=== PATIENT | male | born 1970 | race Caucasian/White ===

== ENCOUNTER 2018-08-20 20:21 | Observation (INO) ==
[2018-08-20] MEDS ORDERED: Ipratropium/Albuterol Neb 3 ML IH ONE (21:10)
[2018-08-20] MEDS ORDERED: Azithromycin 500 MG in D5% in Water 250 ML IVPB ONE (21:25)
[2018-08-20] MEDS ORDERED: cefTRIAXone 1,000 MG in Water for inj. (sterile) 20 ML 10 ML IVP ONE (21:25)
[2018-08-20 21:29] LABS: Basophils # 0.1 K/mcL (0.0-0.2); Basophils % 0.5 %; Eosinophils # 0.2 K/mcL (0.0-0.6); Eosinophils % 0.6 %; Hemoglobin 14.7 g/dL (12.9-16.9); Immature Granulocytes % 1.7 % (0-4); Lymphocytes # 2.3 K/mcL (0.6-4.6); Lymphocytes % 9.7 %; Mean Corpuscular HGB Conc 34.2 g/dL (31.6-35.5); Mean Corpuscular Hemoglobin 30.1 pg (28.0-33.3); Mean Corpuscular Volume 88.1 fL (83.0-100.0); Mean Platelet Volume 9.8 fL (9.4-12.4); Monocytes # 1.5 K/mcL (0.0-1.3); Monocytes % 6.5 %; Neutrophils # 18.8 K/mcL (1.6-8.9); Platelet Count 308 K/mcL (140-400); Red Blood Count 4.88 M/mcL (4.19-5.50); Red Cell Distribution Width 12.5 % (11.5-14.5)
--- NOTE | 2018-08-20 21:34 | Emergency Department Note ---
Disposition Clinical Impression: Bronchiolitis, Tachycardia, Tachypnea Disposition: Admitted As Inpatient Condition: Good Referrals: Karoline Olson CNP [Primary Care Provider] - Forms: ED Satisfaction Letter Time of Disposition: 03:03 [facility] - General Chief Complaint: ED Chest Pain Stated Complaint: Chest Pain/ DANIELLE Time Seen by Provider: 08/20/18 21:13 Nursing Notes Reviewed: Yes Vital Signs Reviewed: Yes - History of Present Illness 48yo male presents from home for evaluation of persistent dyspnea. Onset 12 days ago. He has chills and fatigue. Nausea. Vomiting after coughing. Productive cough with brown/bruno chunks and sputum. Decrease in appetite. Chest pain with cough. Chest heaviness when lying supine at night. Loose stools starting today. He was seen and evaluated at outside hospital 6 days ago, diagnosed with bronchitis, provided steroids and albuterol inhaler. His symptoms have slowly progressively worsened. Nothing noted to improve his symptoms. Habits: [id number] smoking history. Recently quit. On Chantix. ROS: Positive: As above Negative: Unusual back pain, abdominal pain, dysuria, constipation, hematochezia, melena, hematemesis, headache - Related Data Home Medications Medication Instructions Recorded Confirmed Albuterol Sulfate [Ventolin Hfa] 2 puff IH Q4H PRN 08/20/18 08/20/18 Oxycodone HCl/Acetaminophen 1 tab PO Q4-6H PRN 08/20/18 08/20/18 [Percocet 5-325 mg Tablet] Varenicline Tartrate [Chantix 1 tab PO AD 08/20/18 08/20/18 Starting Month BELGICA] Allergies Allergy/AdvReac Type Severity Reaction Status Date / Time No Known Allergies Allergy Verified 08/20/18 20:35 All systems ED: reviewed and negative except as stated. Review of Systems: As Per HPI Past Medical History - Past Medical History Medical history: Reports: hyperlipidemia, hypertension Surgical history: Reports: cholecystectomy, orthopedic, other Psychiatric history: Reports: no psych history - Social History Smoking Status: Former smoker Smokeless Tobacco Status: No Alcohol use: Reports: none Drug use: Reports: none Physical Exam Vital Signs Reviewed General: Patient is alert, oriented, and in mild distress-he is tachypneic, tachycardic, appears ill. Head: atraumatic, normocephalic Eye: normal appearance, PERRL, EOMI, no scleral icterus, no conjunctival injection ENT: mucous membranes moist, normal external ear exam Neck: normal inspection, trachea midline, full ROM Chest: normal inspection, symmetric chest rise Respiratory: Good respiratory effort. Bronchus a 3 phase. Bilateral breath sounds are poor air entry. Diffuse coarse wheeze. Cardiovascular: Regular rate and rhythm. No clicks, rubs, gallops, or murmors. Normal heart sounds. Abdomen: Bowel sounds present normoactive x-4 quadrants. Abdomen is soft, nondistended, and nontender. No guarding or rebound. No organomegaly noted. Musculoskeletal: Spontaneously moving all extremities. Skin: warm, dry, intact. Neuro: Alert and oriented x4. Sensation light touch intact. Psych: Patient's affect is appropriate for situation. Course Course Narrative: SIRS (+): Tachypnea, tachycardia. Clinical concern for acute exacerbation of COPD versus community-acquired pneumonia. Initial intake, patient was tachycardic and tachypnea. He was ill-appearing. Workup showed leukocytosis in part likely from his prednisone. Serum electrolytes unremarkable. Normal renal function. Normal troponin. EKG unremarkable for ischemia. Initial one view chest x-ray showed no acute pro cess. This did not correlate with patient's clinical picture. The CTA chest a prolonged his ED stay, it was subsequently ordered. No PE was seen. Diffuse freed lobar bronchiolitis was seen. This does fit clinically with patient's picture as he has been coughing up thick brown sputum. On repeat examination, his heart rate has improved though remains mildly tachycardic around 100. Respiratory rate remains tachypneic in the mid 20s. Oxygen saturation on room air is borderline hypoxic between 89-92%. His continues to feel ill. I discussed the above with the patient as well as my concerns. He is at bedside are agreeable to admission. I apologize for their prolonged stay in the remains pleasant. I discussed the above with the admitting hospitalist, Dr. Evans. He agrees to accept the patient for continued respiratory support. EKG dated 08/20/18 at 20:30 interpreted as sinus tachycardia with a rate of 104. Short SC 111. QRS 105, QTC 375. Mild right axis. Nonspecific ST-T changes. Compared to previous EKG dated 06/29/2012 showing no acute ischemic changes or comparison. Vital Signs Temperature 98.2 F 08/20/18 20:33 Pulse Rate 121 08/20/18 20:33 Respiratory Rate 18 08/20/18 20:33 Blood Pressure 130/90 08/20/18 20:33 O2 Sat by Pulse Oximetry 94 08/20/18 20:33 Temperature 98.2 F 08/20/18 20:33 Pulse Rate 98 08/21/18 02:11 Respiratory Rate 20 08/21/18 02:11 Blood Pressure 145/97 08/21/18 02:11 O2 Sat by Pulse Oximetry 92 08/21/18 02:11 Oxygen Delivery Oxygen Delivery Room Air Shortness of Breath/Dyspnea - Lab Data Result diagrams: 08/20/18 21:18 08/20/18 21:18 Lab Results 08/20/18 08/20/18 08/20/18 Range/Units 21:18 21:18 21:39 WBC 23.2 H (4.3-11.1) K/mcL RBC 4.88 (4.19-5.50) M/mcL Hgb 14.7 (12.9-16.9) g/dL Hct 43.0 (37.5-50.1) % MCV 88.1 (83.0-100.0) fL MCH 30.1 (28.0-33.3) pg MCHC 34.2 (31.6-35.5) g/dL RDW 12.5 (11.5-14.5) % Plt Count 308 (140-400) K/mcL MPV 9.8 (9.4-12.4) fL Immature Gran % 1.7 (0-4) % Seg Neutrophils % 81.0 % Lymphocytes % 9.7 % Monocytes % 6.5 % Eosinophils % 0.6 % Basophils % 0.5 % Neutrophils # 18.8 H (1.6-8.9) K/mcL Lymphocytes # 2.3 (0.6-4.6) K/mcL Monocytes # 1.5 H (0.0-1.3) K/mcL Eosinophils # 0.2 (0.0-0.6) K/mcL Basophils # 0.1 (0.0-0.2) K/mcL Sodium 140 (136-145) mEq/L Potassium 3.3 L (3.5-5.1) mEq/L Chloride 103 (98-107) mEq/L Carbon Dioxide 28 (23-29) mEq/L BUN 7 (6-20) mg/dL Creatinine 0.75 (0.70-1.30) mg/dL Est GFR ( Amer) > 60 (> 60) Est GFR (Non-Af Amer) > 60 (> 60) BUN/Creatinine Ratio 9 (6-26) Glucose 152 H (70-105) mg/dL Calculated Osmolality 291 (280-300) Lactic Acid 1.2 (0.5-2.2) mmol/L Calcium 9.2 (8.6-10.3) mg/dL Magnesium 2.0 (1.6-2.6) mg/dL Troponin I < 0.03 (< 0.04) ng/mL
[2018-08-20] MEDS: 0.9 % Sodium Chloride 1,000 ML IVC SCH ×2 (21:45→23:15)
[2018-08-20 21:49] LABS: BUN/Creatinine Ratio 9 (6-26); Blood Urea Nitrogen 7 mg/dL (6-20); Calcium 9.2 mg/dL (8.6-10.3); Carbon Dioxide 28 mEq/L (23-29); Chloride 103 mEq/L (98-107); Glucose 152 mg/dL (70-105); Osmolality,Calculated 291 (280-300); Potassium 3.3 mEq/L (3.5-5.1); Sodium 140 mEq/L (136-145); Troponin I < 0.03 ng/mL (< 0.04); eGFR For Non-African Americans > 60 (> 60)
[2018-08-20] MEDS ORDERED: Isovue-370 500 ML INFUS..BTL IV ONE (23:51)
--- NOTE | 2018-08-20 23:56 | Emergency Department Note ---
Disposition Clinical Impression: Bronchiolitis, Tachycardia, Tachypnea Disposition: Admitted As Inpatient Condition: Good General Adult HPI - General Chief complaint: ED Chest Pain Stated complaint: Chest Pain/ DANIELLE Time Seen by Provider: 08/20/18 21:13 Nursing Notes Reviewed: Yes Vital Signs Reviewed: Yes - History of Present Illness Pain Scale: 2 - Related Data Home Medications Medication Instructions Recorded Confirmed Albuterol Sulfate [Ventolin Hfa] 2 puff IH Q4H PRN 08/20/18 08/20/18 Oxycodone HCl/Acetaminophen 1 tab PO Q4-6H PRN 08/20/18 08/20/18 [Percocet 5-325 mg Tablet] Varenicline Tartrate [Chantix 1 tab PO AD 08/20/18 08/20/18 Starting Month ] Allergies Allergy/AdvReac Type Severity Reaction Status Date / Time No Known Allergies Allergy Verified 08/20/18 20:35 Past Medical History - Past Medical History Medical history: Reports: hyperlipidemia, hypertension Surgical history: Reports: cholecystectomy, orthopedic, other Psychiatric history: Reports: no psych history - Social History Smoking Status: Former smoker Smokeless Tobacco Status: No Alcohol use: Reports: none Drug use: Reports: none Course Vital Signs Temperature 98.2 F 08/20/18 20:33 Pulse Rate 121 08/20/18 20:33 Respiratory Rate 18 08/20/18 20:33 Blood Pressure 130/90 08/20/18 20:33 O2 Sat by Pulse Oximetry 94 08/20/18 20:33 Temperature 98.2 F 08/20/18 20:33 Pulse Rate 98 08/21/18 02:11 Respiratory Rate 20 08/21/18 02:11 Blood Pressure 145/97 08/21/18 02:11 O2 Sat by Pulse Oximetry 92 08/21/18 02:11 Oxygen Delivery Oxygen Delivery Room Air Medical Decision Making - Medical Records Medical records reviewed: Yes I reviewed the patient's medical records. - Lab Data Lab results reviewed: Yes I reviewed the patient's lab results. Result diagrams: 08/20/18 21:18 08/20/18 21:18 Lab Results 08/20/18 08/20/18 08/20/18 Range/Units 21:18 21:18 21:39 WBC 23.2 H (4.3-11.1) K/mcL RBC 4.88 (4.19-5.50) M/mcL Hgb 14.7 (12.9-16.9) g/dL Hct 43.0 (37.5-50.1) % MCV 88.1 (83.0-100.0) fL MCH 30.1 (28.0-33.3) pg MCHC 34.2 (31.6-35.5) g/dL RDW 12.5 (11.5-14.5) % Plt Count 308 (140-400) K/mcL MPV 9.8 (9.4-12.4) fL Immature Gran % 1.7 (0-4) % Seg Neutrophils % 81.0 % Lymphocytes % 9.7 % Monocytes % 6.5 % Eosinophils % 0.6 % Basophils % 0.5 % Neutrophils # 18.8 H (1.6-8.9) K/mcL Lymphocytes # 2.3 (0.6-4.6) K/mcL Monocytes # 1.5 H (0.0-1.3) K/mcL Eosinophils # 0.2 (0.0-0.6) K/mcL Basophils # 0.1 (0.0-0.2) K/mcL Sodium 140 (136-145) mEq/L Potassium 3.3 L (3.5-5.1) mEq/L Chloride 103 (98-107) mEq/L Carbon Dioxide 28 (23-29) mEq/L BUN 7 (6-20) mg/dL Creatinine 0.75 (0.70-1.30) mg/dL Est GFR ( Amer) > 60 (> 60) Est GFR (Non-Af Amer) > 60 (> 60) BUN/Creatinine Ratio 9 (6-26) Glucose 152 H (70-105) mg/dL Calculated Osmolality 291 (280-300) Lactic Acid 1.2 (0.5-2.2) mmol/L Calcium 9.2 (8.6-10.3) mg/dL Magnesium 2.0 (1.6-2.6) mg/dL Troponin I < 0.03 (< 0.04) ng/mL - Radiology Data Radiology results reviewed: Yes I reviewed the patient's radiology results. Chest X-Ray 08/20/18 20:36 IMPRESSION: No acute cardiopulmonary disease D/ / Geronimo Damico MD / Geronimo Damico MD Interpreting Provider: Geronimo Damico MD Chest CTA 08/21/18 00:00 IMPRESSION: Hill lobar bronchiolitis characterized by extensive tree-in-bud opacities. D/ / Demetris Carey MD / Demetris Carey MD Interpreting Provider: Demetris Carey MD - EKG Data EKG #1 EKG attestation: Yes I reviewed and interpreted this EKG. EKG results narrative: EKG shows a sinus tachycardia with ventricular rate of 104. No acute ST segment elevation or depression. No significant change from prior EKG dated 06/29/2012. Attestation Statement - Attestation Attestation: I, Minor Olivares MD, personally evaluated this patient and discussed their management with the resident physician. I reviewed the resident's note and agree with the documented findings, medical decision making, and plan of care. 48-year-old male presents to the emergency department with a complaint of a productive cough with thick greenish brown sputum, pleuritic bilateral chest pain, and shortness of breath. Symptoms started about 12 days ago. He was seen 6 days ago and another facility and was given a five-day course of prednisone and an inhaler. He has had no improvement in the symptoms. Subjective fever. Patient states he has a history of pneumonia in the past and this feels the same. On examination patient is a well-developed well-nourished male in mild distress. He is alert and oriented 3. There is no cyanosis or diaphoresis. Patient is tachypneic and appears uncomfortable. Breath sounds are decreased bilaterally with some expiratory wheezes, worse on the left. Heart tachycardic and regular. Abdomen soft and nontender with normal bowel sounds. No pedal edema. Chest x-ray negative. EKG shows a sinus tach with heart rate of 104. No acute ST segment elevation or depression. No significant change from prior EKG dated 06/29/2012. Labs reviewed. WBC 23.2. CTA of the chest was obtained and showed no evidence of pulmonary embolism however there was generalized tree and but appearance consistent with bronchiolitis, worse in the lower lung tinoco. The hospitalist, Dr. Evans, was consulted and accepted admission of the patient.
[2018-08-21] MEDS ORDERED: Ketorolac 15 MG/ML VIAL IVP ONE (01:53)
[2018-08-21] MEDS ORDERED: *HR* FentaNYL (PF) 100 MCG/2 ML VIAL IVP ONE (01:53)
[2018-08-21] MEDS ORDERED: Ringers Solution, Lactated 1,000 ML IVC SCH (03:45)
[2018-08-21] MEDS ORDERED: Potassium Chloride Elixir 20 MEQ/15 ML UDC PO ONE (04:08)
--- NOTE | 2018-08-21 04:20 | Internal Med History&Physical ---
Date of Encounter: 08/21/18 Time of Encounter: 04:18 Internal Medicine - H&P: HPI Chief complaint: SOB Admitted From: Home Plans for Post Hospital Care: Home History of present illness: Kwesi Fuentes is a 48-year-old man with an extensive smoking history recently started on varenicline who presents to the ER with the complaint of shortness of breath and increasing malaise. He says he has been feeling unwell for the past 12 days with chills, subjective fever, fatigue, nausea and productive cough. He was seen in an urgent care center where he was given a course of steroids and an inhaler but says this did not help him. He does report a history of pneumonia in the past and stated that this felt similar. On arrival he was tachycardic and tachypneic. CXR did not show any consolidations and CTA r/o PE and lobar consolidation, only showing signs of bronchiolitis. Given his poor clinical condition he was given empiric abx and fluids. He remained 90-92% saturation on room air which was concerning and is admitted for ongoing observation. He states that no one else at home is sick. He does report some myalgias, headache and generalized malaise. He also reports chest pain due to the incessant coughing. Review of old records show that he had PFTs done 18 months ago for SOB and concerning for reversible obstructive disease. Family hx remarkable for lung disease in father. Past Med Surg Social Fam HX - Past Medical History Medical history: hyperlipidemia, hypertension Additional medical history: former smoker Psychiatric history: no psych history - Past Surgical History Surgical History: cholecystectomy, orthopedic, other Additional surgical history: neck surgery. back surgery - Social History Smoking Status: Former smoker Smokeless Tobacco Status: No Alcohol use: none Drug use: none Internal Medicine - H&P: Meds Albuterol Sulfate [Ventolin Hfa] 2 puff IH Q4H PRN 08/20/18 [History] Oxycodone HCl/Acetaminophen [Percocet 5-325 mg Tablet] 1 tab PO Q4-6H PRN 08/20/18 [History] Varenicline Tartrate [Chantix Starting Month BELGICA] 1 tab PO AD 08/20/18 [History] Allergy/AdvReac Type Severity Reaction Status Date / Time No Known Allergies Allergy Verified 08/20/18 20:35 All Systems PM: A 10-system review of systems was performed and is negative for pertinent findings except as documented above in the HPI. - Constitutional Vitals: Temp Pulse Resp BP Pulse Ox 98.1 F 87 16 135/90 95 08/21/18 03:48 08/21/18 03:48 08/21/18 03:48 08/21/18 03:48 08/21/18 03:48 Exam: Vitals: Reviewed General: Well developed, in notable discomfort and malaise. Skin: Warm, supple. HEENT: Slightly dry mucous membranes. No conjunctivae pallor. Neck: No lymphadenopathy. No JVD. No carotid bruits. No palpable thyroid. Chest: Normal thoracic expansion. Slight wheezes in the lower lung tinoco. Heart: Normal S1 & S2; rhythmic. No rubs or murmurs. Abdomen: Non-distended, soft and non-tender to palpation. Extremities: No clubbing, cyanosis or edema. No calf tenderness. Normal distal pulses. Neurological: Awake, alert and oriented to person, place and time. No focal deficits. Psych: Affect appropriate. Internal Med - H&P Results - Labs CBC & Chem 7: 08/20/18 21:18 08/20/18 21:18 Labs: Short CBC 08/20/18 Range/Units 21:18 WBC 23.2 H (4.3-11.1) K/mcL Hgb 14.7 (12.9-16.9) g/dL Hct 43.0 (37.5-50.1) % Plt Count 308 (140-400) K/mcL Neutrophils # 18.8 H (1.6-8.9) K/mcL BMP 08/20/18 21:18 Sodium 140 Potassium 3.3 L Chloride 103 Carbon Dioxide 28 BUN 7 Creatinine 0.75 Glucose 152 H Calcium 9.2 Cardiac Enzymes 08/20/18 Range/Units 21:18 Troponin I < 0.03 (< 0.04) ng/mL - Impressions ITS Impressions Chest X-Ray 08/20/18 20:36 IMPRESSION: No acute cardiopulmonary disease D/ / Geronimo Damico MD / Geronimo Damico MD Interpreting Provider: Geronimo Damico MD Chest CTA 08/21/18 00:00 IMPRESSION: Hlil lobar bronchiolitis characterized by extensive tree-in-bud opacities. D/ / Demetris Carey MD / Demetris Carey MD Interpreting Provider: Demetris Carey MD - Assessment and plan (1) Acute respiratory failure with hypoxia Current Visit: Yes Status: Acute Assessment and plan: The patient is notably hypoxic for his age and lack of known comorbidities. It is possible that he is now developing COPD from his extensive smoking history. No signs of pneumonia were on on xray or CT scan. Concern exists for either a viral process given his constitutional symptoms, a superimposed bacterial infection in the setting of adult bronchitis or even pertussis given his report of post-tussive emesis. Will place on azithromycin daily. Supplemental oxygen therapy. Nebulizer therapy round the clock. Send serum Mycoplasma serology, B.pertussis PCR, influenza and respiratory virus panel swabs. Continue IVF. (2) Leukocytosis Current Visit: Yes Status: Acute Assessment and plan: Likely associated with recent course of prednisone. No focal consolidations to suggest focal pneumonia and typically a bronchitis/bronchiolitis would not cause this severe elevation. He has received empiric abx. Will continue to monitor trend. Qualifiers: Leukocytosis type: unspecified Qualified Code(s): D72.829 - Elevated white blood cell count, unspecified (3) Smoker Current Visit: Yes Status: Acute Assessment and plan: Will continue varenicline while here. (4) DVT prophylaxis Current Visit: Yes Status: Acute Assessment and plan: SubQ heparin. - Time Spent With Patient Total time spent is greater than 50% in coordination of care (as documented) at patient's floor/unit and/or counseling patient: Greater than 35 minutes
[2018-08-21] MEDS: Ipratropium/Albuterol Neb 3 ML IH SCH ×4 (04:30→22:21)
[2018-08-21] MEDS: *HR* Heparin 5,000 UNIT/ML VIAL SQ SCH ×2 (05:10→17:38)
[2018-08-21] MEDS: *HR* OxyCODONE/APAP 5/325 TABLET PO PRN ×4 (05:11→22:58)
[2018-08-21 06:18] LABS: Adenovirus Not Detected (Not Detect); Bordetella Pertussis Not Detected (Not Detect); Chlamydophila pneumoniae Not Detected (Not Detect); Coronavirus 229E Not Detected (Not Detect); Coronavirus HKU1 Not Detected (Not Detect); Coronavirus NL63 Not Detected (Not Detect); Coronavirus OC43 Not Detected (Not Detect); Human Metapneumovirus Not Detected (Not Detect); Human Rhinovirus/Enterovirus DETECTED (Not Detect); Influenza A Subtype 2009 H1 Not Detected (Not Detect); Influenza A Untypeable Not Detected (Not Detect); Influenza B Not Detected (Not Detect); Mycoplasma pneumoniae Not Detected (Not Detect); Parainfluenza Virus 1 Not Detected (Not Detect); Parainfluenza Virus 2 Not Detected (Not Detect); Parainfluenza Virus 3 Not Detected (Not Detect); Parainfluenza Virus 4 Not Detected (Not Detect); Respiratory Syncytial Virus Not Detected (Not Detect)
[2018-08-21] MEDS ORDERED: Azithromycin 250 MG TABLET PO SCH (09:00)
--- NOTE | 2018-08-21 09:05 | Event Note ---
Date of Encounter: 08/21/18 Time of Encounter: 09:00 Seen and assessed. agree with plan per night team Exam Resp. Decreased breath sounds, rhonchi in lung bases Plan Acute hypoxic resp failure 2/2 to COPD vs bronchiolitis vs viral pneumonia. Continue round the clock nebs, steroids and antibiotics Started on levaquin. CT chest showed multiple tree in bud opacities. Pulmonary consulted and appreciate recs
[2018-08-21] MEDS: Levofloxacin 750 MG/150 ML 750 MG/150 ML BAG IVPB SCH (09:33)
[2018-08-21 09:36] LABS: Basophils # 0.1 K/mcL (0.0-0.2); Basophils % 0.6 %; Eosinophils # 0.2 K/mcL (0.0-0.6); Eosinophils % 1.3 %; Hematocrit 40.3 % (37.5-50.1); Hemoglobin 13.5 g/dL (12.9-16.9); Immature Granulocytes % 2.3 % (0-4); Lymphocytes # 2.7 K/mcL (0.6-4.6); Lymphocytes % 15.1 %; Mean Corpuscular HGB Conc 33.5 g/dL (31.6-35.5); Mean Corpuscular Volume 89.6 fL (83.0-100.0); Mean Platelet Volume 9.8 fL (9.4-12.4); Monocytes # 1.3 K/mcL (0.0-1.3); Monocytes % 7.5 %; Platelet Count 289 K/mcL (140-400); Red Cell Distribution Width 12.6 % (11.5-14.5); Segmented Neutrophils % 73.2 %
[2018-08-21 10:03] LABS: BUN/Creatinine Ratio 7 (6-26); Blood Urea Nitrogen 5 mg/dL (6-20); Calcium 8.9 mg/dL (8.6-10.3); Carbon Dioxide 26 mEq/L (23-29); Chloride 110 mEq/L (98-107); Glucose 106 mg/dL (70-105); Osmolality,Calculated 296 (280-300); Potassium 4.3 mEq/L (3.5-5.1); Sodium 144 mEq/L (136-145); eGFR For Non-African Americans > 60 (> 60)
[2018-08-21] MEDS: Budesonide/Formoterol 160/4.5 1 PUFF INH IH SCH ×2 (10:56→22:21)
[2018-08-21] MEDS: methylPREDNISolone 125 MG/2 ML VIAL IVP SCH ×3 (14:25→23:53)
--- NOTE | 2018-08-21 15:50 | Pulmonology Consult Note ---
Date of Encounter: 08/21/18 Time of Encounter: 11:35 Assessment and Plan (1) Suspected chronic obstructive pulmonary disease based on initial evaluation Current Visit: Yes Status: Acute Based on the CT changes patient has evidence of extensive air-trapping significant for small airway disease or early emphysematous changes consistent with his chronic smoking history. To continue schedule bronchodilators will continue steroids will give steroid taper on discharge will send him home on Spiriva and albuterol nebulizer. (2) Bronchiolitis Current Visit: Yes Status: Acute Patient has extensive tree-in-bud opacities bilaterally in the CT scan this tree-in-bud opacities nothing but mucus impaction in the bronchials secondary to viral bronchiolitis as patient is positive for enterovirus at this can happen and atypical infection but is low probability here agree with the atypical coverage with antibiotics will be given to total 7 day course. Patient to follow-up with pulmonology in 8 weeks so we can repeat imaging and document resolution. (3) Nicotine abuse Current Visit: Yes Status: Acute Counseled about smoking cessation patient is motivated he is already on Chantix he said he is not going to smoke congratulated on his resolve. History of Present Illness Consult date: 08/21/18 Requesting physician: Benjamín Li Reason for consult: pneumonia, pulmonary fibrosis Chief complaint: shortness of breath cough and sputum production. History of present illness: 48-year-old male with past medical history significant for chronic smoking history comes with few days of not feeling well with increased cough and sputum production denies much fever or chills with increased shortness of breath patient uses short-acting bronchodilators as home medication was recently started on Chantix for quitting smoking found to have viral exacerbation of COPD with respiratory bronchiolitis with this typical of any viral or atypical infection pulmonary was consulted for bilateral tree-in-bud opacities which was found in CT chest. I interviewed the patient patient still has increased shortness of breath cough and some sputum production not feeling well denies any chest pain or chest tightness. Denies any GERD or neuro symptoms. Patient denies any musculoskeletal symptoms. Past Med Surg Social Fam HX - Past Medical History Medical history: hyperlipidemia, hypertension Additional medical history: former smoker Psychiatric history: no psych history - Past Surgical History Surgical History: cholecystectomy, orthopedic, other Additional surgical history: neck surgery. back surgery - Social History Smoking Status: Former smoker Smokeless Tobacco Status: No Alcohol use: none Drug use: none Medications and Allergies Albuterol Sulfate [Ventolin Hfa] 2 puff IH Q4H PRN 08/20/18 [History] Oxycodone HCl/Acetaminophen [Percocet 5-325 mg Tablet] 1 tab PO Q4-6H PRN 08/20/18 [History] Varenicline Tartrate [Chantix Starting Month BELGICA] 1 tab PO AD 08/20/18 [History] Allergy/AdvReac Type Severity Reaction Status Date / Time No Known Allergies Allergy Verified 08/20/18 20:35 All Systems: The remainder of the systems were reviewed and are negative Physical Examination Vital Signs: as entered per nursing Effort: mildly labored Auscultation: bilateral: wheezes Results - Laboratory Findings CBC and BMP: 08/21/18 09:25 08/21/18 09:25 Abnormal lab findings: Abnormal lab results WBC 17.7 K/mcL (4.3-11.1) H 08/21/18 09:25 Neutrophils # 13.0 K/mcL (1.6-8.9) H 08/21/18 09:25 Chloride 110 mEq/L (98-107) H 08/21/18 09:25 BUN 5 mg/dL (6-20) L 08/21/18 09:25 Glucose 106 mg/dL (70-105) H 08/21/18 09:25 Entero/Rhino (PCR) DETECTED (Not Detect) A 08/21/18 05:10 - Microbiology Findings Microbiology Findings: Microbiology, Last 48 Hours 08/20/18 21:39 Blood Culture - Preliminary Peripheral Venipuncture Culture is incubating and being continuously mo nitored for growth. Final report to follow. 08/20/18 21:39 Blood Culture - Preliminary Peripheral Venipuncture Culture is incubating and being continuously monitored for growth. Final report to follow. - Clinical Findings Intake & Output: Intake & Output 08/20/18 08/21/18 08/21/18 23:59 07:59 15:59 Intake Total 1250 / 1250 1000 / 1000 240 / 240 Balance 1250 / 1250 1000 / 1000 240 / 240 Weight 71.214 kg 72.8 kg Consult Discharge Plan - Plan Referrals: Karoline Olson, LABORATORY CHEMIST [Primary Care Provider] -
[2018-08-22] MEDS: Artificial Tears SOLN 15 ML BOTTLE BOTH EYES SCH ×2 (00:50→20:24)
[2018-08-22] MEDS: Ipratropium/Albuterol Neb 3 ML IH SCH ×4 (04:01→22:20)
[2018-08-22] MEDS: OXYCODONE Oral CONC 10 MG/0.5 ML ORAL.SYG SL PRN ×4 (04:08→22:18)
[2018-08-22] MEDS: *HR* Heparin 5,000 UNIT/ML VIAL SQ SCH ×2 (05:23→17:57)
--- NOTE | 2018-08-22 08:40 | Internal Med Progress Note ---
Hospitalist Progress Note - Encounter Date of Encounter: 08/22/18 Time of Encounter: 08:30 - Exam Vitals: Temp Pulse Resp BP Pulse Ox 98.8 F 89 18 137/95 93 08/22/18 07:27 08/22/18 07:27 08/22/18 07:27 08/22/18 07:27 08/22/18 07:27 Exam: Vitals: Reviewed General: Well developed, in notable discomfort and malaise. Skin: Warm, supple. HEENT: Slightly dry mucous membranes. No conjunctivae pallor. Neck: No lymphadenopathy. No JVD. No carotid bruits. No palpable thyroid. Chest: Normal thoracic expansion. Slight wheezes in the lower lung tinoco. Heart: Normal S1 & S2; rhythmic. No rubs or murmurs. Abdomen: Non-distended, soft and non-tender to palpation. Extremities: No clubbing, cyanosis or edema. No calf tenderness. Normal distal pulses. Neurological: Awake, alert and oriented to person, place and time. No focal deficits. Psych: Affect appropriate. - Assessment and Plan (1) Acute respiratory failure with hypoxia Current Visit: Yes Status: Acute Assessment and Plan: Secondary to acute COPD exacerbation and viral peneumonia with enterovirus. CT chest showed multiple tree in bud opacities suggestive of bronichiolitis from viral/atypical pneumonia Will start on nebs, steroids and antibiotics. Pulmonary following. Wean off oxygen as tolerated (2) COPD with acute exacerbation Current Visit: Yes Status: Acute Assessment and Plan: See #1. nebs, steroids and antibiotics (3) Bronchiolitis Current Visit: Yes Status: Acute Assessment and Plan: On antibiotics (4) Leukocytosis Current Visit: Yes Status: Acute Assessment and Plan: Likely associated with recent course of prednisone. Trending down (5) Smoker Current Visit: Yes Status: Acute Assessment and Plan: Will continue varenicline. (6) DVT prophylaxis Current Visit: Yes Status: Acute Assessment and Plan: SubQ heparin. - Time Spent with Patient Total time spent is greater than 50% in coordination of care (as documented) at patient's floor/unit and/or counseling patient: Internal Medicine: Result - Labs CBC & Chem 7: 08/21/18 09:25 08/21/18 09:25 Labs: Short CBC 08/21/18 Range/Units 09:25 WBC 17.7 H (4.3-11.1) K/mcL Hgb 13.5 (12.9-16.9) g/dL Hct 40.3 (37.5-50.1) % Plt Count 289 (140-400) K/mcL Neutrophils # 13.0 H (1.6-8.9) K/mcL [facility] 08/21/18 09:25 Sodium 144 Potassium 4.3 D Chloride 110 H Carbon Dioxide 26 BUN 5 L Creatinine 0.72 Glucose 106 H Calcium 8.9 Consult Discharge Plan - Plan Referrals: Karoline Olson, DENTAL SECRETARY [Primary Care Provider] - (4) Leukocytosis Qualifiers: Leukocytosis type: unspecified Qualified Code(s): D72.829 - Elevated white blood cell count, unspecified
[2018-08-22] MEDS: methylPREDNISolone 125 MG/2 ML VIAL IVP SCH ×2 (09:13→15:58)
[2018-08-22] MEDS: Levofloxacin 750 MG/150 ML 750 MG/150 ML BAG IVPB SCH (09:24)
[2018-08-22] MEDS: Budesonide/Formoterol 160/4.5 1 PUFF INH IH SCH ×2 (10:02→22:20)
--- NOTE | 2018-08-22 11:21 | Pulmonology Progress Note ---
Date of Encounter: 08/22/18 Time of Encounter: 11:00 Assessment and Plan (1) Suspected chronic obstructive pulmonary disease based on initial evaluation Current Visit: Yes Status: Acute Patient presenting with viral bronchiolitis with CT chest imaging patient has evidence of emphysematous changes looks like COPD exacerbation TO CONTINUE CURRENT REGIMEN OF BRONCHODILATORS TO SEND HIM HOME ON PROLONGED STEROID TAPER OVER 12 DAYS. Also do an exercise oximetry he might need exercise induced O2 supplementation for 4-6 weeks. (2) Bronchiolitis Current Visit: Yes Status: Acute Patient has extensive tree-in-bud opacities which shows bronchiolitis to get follow-up imaging in 8 weeks to document resolution. To follow-up with [place] [facility]ology in 8 weeks patient motivated to follow up with pulmonology and quit smoking. (3) Nicotine abuse Current Visit: Yes Status: Acute Motivated to quit smoking to continue with Chantix. Subjective Principal diagnosis: viral bronchiolitis Interval history: Patient is doing well feels a lot better than yesterday has some cough and sputum production as of breath denies any chest pain or chest tightness denies any fever or chills denies any other constitutional symptoms. Objective PUL Vital signs: Last Vital Signs Temp 98.8 F 08/22/18 07:27 Pulse 89 08/22/18 07:27 Resp 20 08/22/18 10:02 BP 137/95 08/22/18 07:27 Pulse Ox 92 08/22/18 10:02 Auscultation: bilateral: wheezes (miniml scattered wheezes ) Results - Laboratory Findings CBC and BMP: 08/21/18 09:25 08/21/18 09:25 Abnormal lab findings: Abnormal lab results WBC 17.7 K/mcL (4.3-11.1) H 08/21/18 09:25 Neutrophils # 13.0 K/mcL (1.6-8.9) H 08/21/18 09:25 Chloride 110 mEq/L (98-107) H 08/21/18 09:25 BUN 5 mg/dL (6-20) L 08/21/18 09:25 Glucose 106 mg/dL (70-105) H 08/21/18 09:25 Entero/Rhino (PCR) DETECTED (Not Detect) A 08/21/18 05:10 - Microbiology Findings Microbiology Findings: Microbiology, Last 48 Hours 08/20/18 21:39 Blood Culture - Preliminary Peripheral Venipuncture Culture is incubating and being continuously monitor ed for growth. Final report to follow. 08/20/18 21:39 Blood Culture - Preliminary Peripheral Venipuncture Culture is incubating and being continuously monitored for growth. Final report to follow. - Clinical Findings Intake & Output: Intake & Output 08/21/18 08/22/18 08/22/18 23:59 07:59 15:59 Intake Total 240 / 240 150 / 150 240 / 240 Output Total 450 / 450 1400 / 1400 Balance -210 / -210 -1250 / -1250 240 / 240 Consult Discharge Plan - Plan Referrals: Karoline Olson, SALES ACCOUNT EXECUTIVE [Primary Care Provider] -
[2018-08-22] MEDS: *HR* HYDROcodone/Acet 7.5/325 mg TABLET PO PRN (17:57)
[2018-08-23] MEDS: methylPREDNISolone 125 MG/2 ML VIAL IVP SCH ×2 (00:15→08:05)
[2018-08-23] MEDS: *HR* HYDROcodone/Acet 7.5/325 mg TABLET PO PRN ×2 (00:15→08:05)
[2018-08-23] MEDS: Ipratropium/Albuterol Neb 3 ML IH SCH ×2 (04:31→10:51)
[2018-08-23] MEDS: *HR* Heparin 5,000 UNIT/ML VIAL SQ SCH (05:10)
[2018-08-23] MEDS: OXYCODONE Oral CONC 10 MG/0.5 ML ORAL.SYG SL PRN (05:10)
[2018-08-23 05:20] LABS: Hematocrit 40.4 % (37.5-50.1); Hemoglobin 13.8 g/dL (12.9-16.9); Mean Corpuscular HGB Conc 34.2 g/dL (31.6-35.5); Mean Corpuscular Hemoglobin 30.3 pg (28.0-33.3); Mean Corpuscular Volume 88.6 fL (83.0-100.0); Mean Platelet Volume 9.9 fL (9.4-12.4); Platelet Count 343 K/mcL (140-400); Red Blood Count 4.56 M/mcL (4.19-5.50); Red Cell Distribution Width 12.8 % (11.5-14.5)
[2018-08-23 05:27] LABS: BUN/Creatinine Ratio 22 (6-26); Blood Urea Nitrogen 15 mg/dL (6-20); Calcium 9.4 mg/dL (8.6-10.3); Carbon Dioxide 25 mEq/L (23-29); Chloride 105 mEq/L (98-107); Glucose 135 mg/dL (70-105); Osmolality,Calculated 293 (280-300); Potassium 4.2 mEq/L (3.5-5.1); Sodium 140 mEq/L (136-145); eGFR For Non-African Americans > 60 (> 60)
[2018-08-23 05:55] LABS: Neutrophils # 26.8 K/mcL (1.6-8.9); Platelet Estimate Normal (Normal)
[2018-08-23] MEDS: Levofloxacin 750 MG/150 ML 750 MG/150 ML BAG IVPB SCH (08:08)
--- NOTE | 2018-08-23 08:23 | Discharge Summary ---
Orders not resulted at time of discharge: Pending orders 08/20/18 21:39 Culture,Blood [BC] Stat 08/21/18 11:50 Mycoplasma pneumoniae IgG IgM Routine 08/21/18 15:52 Legionella Antigen [RM] Routine Date of Encounter: 08/23/18 Time of Encounter: 08:15 - Discharge Diagnosis (1) Acute respiratory failure with hypoxia Priority: Primary Status: Acute Assessment and Plan: 48-year-old man with an extensive smoking history recently started on varenicline who presents to the ER with the complaint of shortness of breath and increasing malaise. He says he has been feeling unwell for the past 12 days with chills, subjective fever, fatigue, nausea and productive cough. He was seen in an urgent care center where he was given a course of steroids and an inhaler but says this did not help him. He does report a history of pneumonia in the past and stated that this felt similar. He was assessed with acute hypoxic respiratory failure secondary to acute COPD exacerbation and viral peneumonia with enterovirus. CT chest showed multiple tree in bud opacities suggestive of bronichiolitis from viral/atypical pneumonia he improved on nebs, steroids and antibiotics. He was seen by pulmonary who recommended discharge on a tapering course of steroids. He was discharged in a stable condition (2) COPD with acute exacerbation Priority: Primary Status: Acute (3) Bronchiolitis Priority: Primary Status: Acute (4) Leukocytosis Priority: Primary Status: Acute Qualifiers: Leukocytosis type: unspecified Qualified Code(s): D72.829 - Elevated white blood cell count, unspecified (5) Smoker Priority: Primary Status: Acute (6) DVT prophylaxis Priority: Primary Status: Acute Hospital course: Mr. Fuentes is a 48 year old male - Time Spent with Patient Total time spent providing and/or coordinating discharge services: - Discharge Medications Prescriptions: Budesonide/Formoterol 160/4.5 [Symbicort 160/4.5] 2 puff IH BIDR 30 Days #1 inh levoFLOXacin [Levaquin] 750 mg PO DAILY 5 Days #5 tablet predniSONE [PredniSONE] 10 mg PO DAILY 4 Days #4 tablet predniSONE [PredniSONE] 40 mg PO DAILY 4 Days #8 tablet predniSONE [PredniSONE] 20 mg PO DAILY 4 Days #4 tablet Home Medications: Albuterol Sulfate [Ventolin Hfa] 2 puff IH Q4H PRN 08/20/18 [History] Oxycodone HCl/Acetaminophen [Percocet 5-325 mg Tablet] 1 tab PO Q4-6H PRN 08/20/18 [History] Varenicline Tartrate [Chantix Starting Month ] 1 tab PO AD 08/20/18 [History] Budesonide/Formoterol 160/4.5 [Symbicort 160/4.5] 2 puff IH BIDR 30 Days #1 inh 08/23/18 [Rx] levoFLOXacin [Levaquin] 750 mg PO DAILY 5 Days #5 tablet 08/23/18 [Rx] predniSONE [PredniSONE] 10 mg PO DAILY 4 Days #4 tablet 08/23/18 [Rx] predniSONE [PredniSONE] 20 mg PO DAILY 4 Days #4 tablet 08/23/18 [Rx] predniSONE [PredniSONE] 40 mg PO DAILY 4 Days #8 tablet 08/23/18 [Rx] Allergies/Adverse Reactions: Allergy/AdvReac Type Severity Reaction Status Date / Time No Known Allergies Allergy Verified 08/20/18 20:35 Date of admission: 08/21/18 03:01 Primary care physician: Karoline Olson CNP Consults: 08/21/18 08:55 Consult to Pulmonology [CONS] Routine Consulting Provider: [facility] Reason for Consult: acute hypoxic respiratory failure with freed lobar tree in bud opacities on CT scan Call Completed: No - Constitutional Vitals: Temp Pulse Resp BP Pulse Ox 97.8 F 79 18 130/97 90 08/23/18 05:31 08/23/18 05:31 08/23/18 05:31 08/23/18 05:31 08/23/18 05:31 Exam: Vitals: Reviewed General: Well developed, in notable discomfort and malaise. Skin: Warm, supple. HEENT: Slightly dry mucous membranes. No conjunctivae pallor. Neck: No lymphadenopathy. No JVD. No carotid bruits. No palpable thyroid. Chest: Normal thoracic expansion. Slight wheezes in the lower lung [place]. Heart: Normal S1 & S2; rhythmic. No rubs or murmurs. Abdomen: Non-distended, soft and non-tender to palpation. Extremities: No clubbing, cyanosis or edema. No calf tenderness. Normal distal pulses. Neurological: Awake, alert and oriented to person, place and time. No focal deficits. Psych: Affect appropriate. - Patient Status Disposition: Home, Self-Care Condition: Good - Discharge Instructions Instructions: Prednisone (By mouth), Levofloxacin (By mouth), Budesonide/Formoterol (By breathing), Acute Respiratory Distress Syndrome (DC), Chronic Obstructive Pulmonary Disease (DC) Follow Up With: Karoline Olson CNP [Primary Care Provider] - 08/30/18 1:00 pm
[2018-08-23 09:34] VITALS: BP 141/92
[2018-08-23] MEDS: Budesonide/Formoterol 160/4.5 1 PUFF INH IH SCH (10:50)
[2018-08-23] MEDS ORDERED: predniSONE 20 MG TABLET PO SCH (16:00)
[2018-08-26 07:50] LABS: Mycoplasma pneumoniae IgG 0.33 U/L (<=0.09)
--- NOTE | 2018-08-27 09:57 | Electrocardiograph Report ---
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
== END 2018-08-23 14:40 | disposition home or self-care (01) ==
LOC: 2NENU 20:21 → EMEROOARM 20:21 → 2NENU 08-21 03:15
PROVIDERS: ADMIT Internal Medicine; ATTEND Internal Medicine